=== PATIENT | female | born 1990 | race African-American/Black ===

== ENCOUNTER 2020-06-28 17:06 | Observation (INO) | payer OTHER ==
[2020-06-28 18:04] VITALS: BMI 52.2
[2020-06-28] MEDS ORDERED: Calcium Carbonate 500 MG ChewTAB PO PRN (18:30)
[2020-06-28] MEDS ORDERED: Ondansetron PF 4 MG/2 ML Vial SLOW IVP PRN (18:30)
[2020-06-28] MEDS ORDERED: Acetaminophen 325 MG TAB PO PRN (18:30)
[2020-06-28] MEDS ORDERED: diphenhydrAMINE 50 MG/ML VIAL IVP PRN (20:05)
[2020-06-28] MEDS ORDERED: diphenhydrAMINE 50 MG/ML VIAL IVP SCH (20:15)
[2020-06-28] MEDS ORDERED: Pantoprazole 40 MG VIAL IVP SCH (20:15)
[2020-06-28 20:57] LABS: Phosphorus 3.6 mg/dL (2.3-4.7)
[2020-06-28 21:00] LABS: ALT (SGPT) 10 U/L (8-55); AST (SGOT) 16 U/L (5-34); Alkaline Phosphatase 91 U/L (40-110); Anion Gap 16 mmol/L (10-20); BUN (Urea Nitrogen) 4 mg/dL (7.0-18.7); Bilirubin, Total 0.4 mg/dL (0.2-1.2); Calc. Creatinine Clearance 268 mL/min (70-130); Calcium 9.5 mg/dL (7.8-10.44); Carbon Dioxide 21 mmol/L (22-29); Chloride 103 mmol/L (98-107); Globulin 3.9 g/dL (2.4-3.5); Glucose 94 mg/dL (70-105); Potassium 3.5 mmol/L (3.5-5.1); Protein, Total 7.9 g/dL (6.0-8.3); Sodium 136 mmol/L (136-145)
[2020-06-28] MEDS: Lactated Ringer's 1,000 ML IV SCH (21:00)
[2020-06-28 21:01] LABS: Magnesium 1.8 mg/dL (1.6-2.6)
[2020-06-28 21:21] LABS: Thyroid Stimulating Hormone 1.4609 uIU/mL (0.35-4.94)
[2020-06-28 22:03] LABS: #Monocytes 0.8 10x3/uL (0.0-1.1); %Basophils 0.3 % (0.0-2.0); %Eosinophils 0.2 % (0.0-6.0); %Lymphocytes 17.5 % (18.0-47.0); %Monocytes 7.3 % (0.0-10.0); %Neutrophils 74.4 % (40.0-75.0); Hemoglobin 11.6 g/dL (12.0-15.5); Mean Corpuscular HGB CONC 32.7 g/dL (32.0-36.0); Mean Corpuscular Volume 85.7 fl (81.6-98.3); Mean Platelet Volume 10.1 fl (7.4-10.4); Platelet Count 339 10x3/uL (150-450); RBC Distribution Width 16.3 % (11.5-14.5); Red Blood Cell (RBC) Count 4.14 10x6/uL (3.90-5.03); White Blood Cell (WBC) Count 10.7 10x3/uL (3.5-10.5)
[2020-06-28] MEDS ORDERED: Nystatin Powder 15 GM BOT TOP PRN (22:23)
[2020-06-29] MEDS: Lactated Ringer's 1,000 ML IV SCH (03:50)
[2020-06-29 04:22] LABS: Bilirubin 1+ (Negative); Blood, Urine Negative (Negative); Clarity Clear (Clear); Glucose, Urine (Dipstick) Normal (Negative); Ketone, Urine 150 mg/dL (Negative); Leukocyte 25 (Negative); Nitrite Negative (Negative); Protein, Urine (Dipstick) 30 mg/dl (Neg-Trace); Specific Gravity, Urine 1.025 (1.002-1.036)
[2020-06-29 04:41] LABS: Bacteria/HPF 2+ HPF (None Seen); Mucous/LPF 4+ LPF (<2+); RBC/HPF 0-3 HPF (0-3)
[2020-06-29 06:49] LABS: #Monocytes 0.7 10x3/uL (0.0-1.1); #Neutrophils 5.5 10x3/uL (1.5-8.4); %Basophils 0.4 % (0.0-2.0); %Eosinophils 0.4 % (0.0-6.0); %Lymphocytes 26.4 % (18.0-47.0); %Monocytes 8.3 % (0.0-10.0); Hemoglobin 10.5 g/dL (12.0-15.5); Mean Corpuscular HGB CONC 31.7 g/dL (32.0-36.0); Mean Corpuscular Hemoglobin 27.5 pg (27.0-33.0); Mean Corpuscular Volume 86.6 fl (81.6-98.3); Mean Platelet Volume 10.2 fl (7.4-10.4); Platelet Count 314 10x3/uL (150-450); RBC Distribution Width 16.7 % (11.5-14.5); Red Blood Cell (RBC) Count 3.82 10x6/uL (3.90-5.03); White Blood Cell (WBC) Count 8.5 10x3/uL (3.5-10.5)
[2020-06-29 07:36] LABS: HIV (1/2) Antibody/Antigen Non-Reactive (NonReactive); HIV 1/2 INDEX 0.07 S/CO (<1.00); Hep B Surf Ag Non-Reactive S/CO (NonReactive)
[2020-06-29 07:37] LABS: Syphilis Antibody Nonreactive (Nonreactive); Syphilis Antibody Index 0.04 S/CO (<1.00 Non-Reactive)
[2020-06-29 07:42] LABS: HBSAg Index 0.07 S/CO (0-0.99)
[2020-06-29] MEDS ORDERED: Pantoprazole 40 MG VIAL IVP SCH (09:00)
[2020-06-29] MEDS ORDERED: Prenatal Vitamin 1 TAB PO SCH (09:00)
[2020-06-29 11:14] VITALS: BP 110/66; TEMP 98.5
[2020-06-29 13:35] LABS: SARS-CoV-2 PCR by NAA Not Detected (NotDetected)
[2020-06-29 20:51] LABS: Hep C IgG Ab Non-Reactive (NonReactive); Hep C Index 0.12 S/CO (0-0.79)
== END 2020-06-29 15:45 | disposition home or self-care (01) ==
LOC: INTOOBSV 17:06 → CSHANTE 17:06
PROVIDERS: ADMIT Internal Medicine; ATTEND Emergency Medicine
DX: O21.0 Mild hyperemesis gravidarum (principal); O99.891 Other specified diseases and conditions complicating pregnancy; L30.4 Erythema intertrigo; O99.613 Diseases of the digestive system complicating pregnancy, third trimester; K21.9 Gastro-esophageal reflux disease without esophagitis; O34.211 Maternal care for low transverse scar from previous cesarean delivery; Z3A.01 Less than 8 weeks gestation of pregnancy; Z88.8 Allergy status to other drugs, medicaments and biological substances
CPT/HCPCS: 36415; 76856; 80053; 81001; 83036; 83690; 83735; 84100; 84443; 85025; 86762; 86780; 86803; 86850; 86900; 86901; 87340; 87389; 87635; 93005; 93010; 96361; 96374; G0378; J1200; U0003; U0005

== ENCOUNTER 2020-07-03 10:09 | Observation (INO) | payer OTHER ==
[~2020-07-03 10:09] MED LIST: Pantoprazole 40 MG VIAL IVP SCH
[2020-07-03] MEDS ORDERED: Famotidine/PF 20 mg/2ml Vial ONE (10:55)
[2020-07-03] MEDS ORDERED: Pantoprazole 40 MG VIAL ONE ×2 (10:55→12:16)
[2020-07-03] MEDS ORDERED: Metoclopramide HCl 10 MG/2 ML VIAL ONE (10:56)
[2020-07-03 11:59] LABS: #Monocytes 0.8 10x3/uL (0.0-1.1); #Neutrophils 7.8 10x3/uL (1.5-8.4); %Basophils 0.3 % (0.0-2.0); %Eosinophils 0.1 % (0.0-6.0); %Lymphocytes 15.4 % (18.0-47.0); %Monocytes 7.9 % (0.0-10.0); %Neutrophils 75.8 % (40.0-75.0); Hemoglobin 12.3 g/dL (12.0-15.5); Mean Corpuscular HGB CONC 32.2 g/dL (32.0-36.0); Platelet Count 384 10x3/uL (150-450); RBC Distribution Width 16.6 % (11.5-14.5); Red Blood Cell (RBC) Count 4.39 10x6/uL (3.90-5.03); White Blood Cell (WBC) Count 10.3 10x3/uL (3.5-10.5)
[2020-07-03 12:22] LABS: Anion Gap 16 mmol/L (10-20); BUN (Urea Nitrogen) 5 mg/dL (7.0-18.7); Calc. Creatinine Clearance 0 mL/min (70-130); Calcium 9.7 mg/dL (7.8-10.44); Carbon Dioxide 22 mmol/L (22-29); Chloride 103 mmol/L (98-107); Glucose 79 mg/dL (70-105); Potassium 3.6 mmol/L (3.5-5.1); Sodium 137 mmol/L (136-145)
[2020-07-03] MEDS ORDERED: Acetaminophen 325 MG TAB PO PRN (12:42)
[2020-07-03] MEDS ORDERED: Acetaminophen 650 MG Suppository PR PRN (12:42)
[2020-07-03] MEDS ORDERED: Ondansetron PF 4 MG/2 ML Vial IVP SCH (12:45)
[2020-07-03] MEDS ORDERED: Nystatin Powder 15 GM BOT TOP PRN (12:48)
[2020-07-03] MEDS ORDERED: diphenhydrAMINE 50 MG/ML VIAL IVP PRN (13:21)
[2020-07-03] MEDS ORDERED: Lactated Ringer's 1,000 ML IV SCH ×2 (13:30)
[2020-07-03] MEDS ORDERED: Promethazine HCl 25 MG in Sodium Chloride 0.9% 50 ML IVPB SCH (13:45)
[2020-07-03] MEDS: Lactated Ringer's 1,000 ML IV SCH ×2 (16:23→20:10)
[2020-07-03] MEDS: Ondansetron PF 4 MG/2 ML Vial IVP SCH (20:11)
[2020-07-03 22:47] LABS: Magnesium 2.3 mg/dL (1.6-2.6); Phosphorus 3.2 mg/dL (2.3-4.7)
[2020-07-04] MEDS: Lactated Ringer's 1,000 ML IV SCH ×2 (01:12→05:17)
[2020-07-04] MEDS: Ondansetron PF 4 MG/2 ML Vial IVP SCH ×2 (03:45→08:27)
[2020-07-04 08:14] VITALS: BP 114/66; TEMP 97.9
[2020-07-04] MEDS ORDERED: Ondansetron ODT 4 MG TAB PO SCH (08:30)
[2020-07-04] MEDS ORDERED: Prenatal Vitamin 1 TAB PO SCH (09:00)
[2020-07-04] MEDS ORDERED: Pantoprazole 40 MG VIAL IVP SCH (09:00)
[2020-07-04] MEDS ORDERED: Metoclopramide HCl 10 MG TAB PO SCH (11:30)
[2020-07-04 16:44] LABS: SARS-CoV-2 PCR by NAA Not Detected (NotDetected)
== END 2020-07-04 10:33 | disposition home or self-care (01) ==
LOC: CSHERS 10:09 → CSHPP 14:33
PROVIDERS: ADMIT Family Medicine; ATTEND Family Medicine
DX: O21.0 Mild hyperemesis gravidarum (principal); O99.611 Diseases of the digestive system complicating pregnancy, first trimester; K21.9 Gastro-esophageal reflux disease without esophagitis; O99.891 Other specified diseases and conditions complicating pregnancy; R19.7 Diarrhea, unspecified; L30.4 Erythema intertrigo; O99.211 Obesity complicating pregnancy, first trimester; E66.9 Obesity, unspecified; O34.211 Maternal care for low transverse scar from previous cesarean delivery; Z3A.01 Less than 8 weeks gestation of pregnancy; Z88.8 Allergy status to other drugs, medicaments and biological substances; Z20.822 Contact with and (suspected) exposure to COVID-19
CPT/HCPCS: 80048; 82010; 83735; 84100; 84702; 85025; 87635; 96374; 96375; 96376; C9113; G0378; J2405; J2550; J2765; S0028; U0003; U0005

== ENCOUNTER 2020-08-06 17:23 | Emergency (ER) | payer OTHER ==
[2020-08-06] MEDS ORDERED: Acetaminophen 500 MG TAB ONE (17:49)
[2020-08-06 18:02] LABS: Bilirubin Neg (Negative); Blood, Urine Negative (Negative); Clarity Clear (Clear); Glucose, Urine (Dipstick) Normal (Negative); Ketone, Urine Negative (Negative); Leukocyte 25 (Negative); Nitrite Negative (Negative); Protein, Urine (Dipstick) Negative (Neg-Trace); Specific Gravity, Urine 1.015 (1.002-1.036); Urobilinogen Normal mg/dL (Less than 2)
[2020-08-06 18:13] LABS: Bacteria/HPF Rare-Few HPF (None Seen); Mucous/LPF Few LPF (<2+); RBC/HPF 0-3 HPF (0-3); Squamous Epithelial 0-3 HPF (0-3); WBC/HPF 0-3 HPF (0-3)
[2020-08-06 18:21] LABS: #Monocytes 0.7 10x3/uL (0.0-1.1); #Neutrophils 5.3 10x3/uL (1.5-8.4); %Basophils 0.3 % (0.0-2.0); %Eosinophils 0.5 % (0.0-6.0); %Lymphocytes 28.4 % (18.0-47.0); %Monocytes 8.1 % (0.0-10.0); %Neutrophils 62.1 % (40.0-75.0); Mean Corpuscular HGB CONC 31.9 g/dL (32.0-36.0); Mean Corpuscular Hemoglobin 27.8 pg (27.0-33.0); Mean Platelet Volume 10.1 fl (7.4-10.4); Platelet Count 322 10x3/uL (150-450); RBC Distribution Width 16.1 % (11.5-14.5); Red Blood Cell (RBC) Count 4.32 10x6/uL (3.90-5.03); White Blood Cell (WBC) Count 8.6 10x3/uL (3.5-10.5)
[2020-08-06 18:32] LABS: ALT (SGPT) 11 U/L (8-55); AST (SGOT) 23 U/L (5-34); Albumin 3.7 g/dL (3.5-5.0); Alkaline Phosphatase 80 U/L (40-110); Anion Gap 14 mmol/L (10-20); BUN (Urea Nitrogen) 5 mg/dL (7.0-18.7); Bilirubin, Total 0.2 mg/dL (0.2-1.2); Calc. Creatinine Clearance 0 mL/min (70-130); Calcium 9.6 mg/dL (7.8-10.44); Carbon Dioxide 21 mmol/L (22-29); Chloride 104 mmol/L (98-107); Globulin 4.1 g/dL (2.4-3.5); Glucose 82 mg/dL (70-105); Lipase 19 U/L (8-78); Potassium 3.9 mmol/L (3.5-5.1); Protein, Total 7.8 g/dL (6.0-8.3); Sodium 135 mmol/L (136-145)
== END 2020-08-06 19:46 | disposition home or self-care (01) ==
LOC: CSHERS 17:23
DX: O99.891 Other specified diseases and conditions complicating pregnancy (principal); R07.2 Precordial pain; R11.0 Nausea; Z3A.12 12 weeks gestation of pregnancy
CPT/HCPCS: 71045; 80053; 81003; 81015; 83690; 84484; 84702; 85025; 93005

== ENCOUNTER 2021-02-08 05:30 | Inpatient (IN) | payer OTHER ==
[2021-02-08] MEDS ORDERED: Bupivacaine 0.25% HCL 30 ML VIAL ONE (06:00)
[2021-02-08 07:00] VITALS: BMI 52.2
[2021-02-08] MEDS ORDERED: Lidocaine 1% (PF) 30 ML VIAL SC PRN (07:07)
[2021-02-08] MEDS ORDERED: Ondansetron PF 4 MG/2 ML Vial IVP PRN ×2 (07:10→22:51)
[2021-02-08] MEDS ORDERED: Promethazine HCl 25 MG/ML VIAL IM PRN ×2 (07:10→22:51)
[2021-02-08] MEDS ORDERED: hydrALAZINE 20 MG/ML VIAL SLOW IVP PRN (07:10)
[2021-02-08] MEDS ORDERED: Penicillin G Potassium 5 MILL.UNITS in Sodium Chloride 0.9% 100 ML IVPB SCH (07:15)
[2021-02-08] MEDS ORDERED: NS w/ Oxytocin 30 units 500 ML IV SCH (07:15)
[2021-02-08] MEDS ORDERED: Lactated Ringer's 1,000 ML IV SCH (07:15)
[2021-02-08] MEDS ORDERED: NS w/ Oxytocin 30 units 500 ML IVPB SCH (07:15)
[2021-02-08] MEDS ORDERED: Acetaminophen 325 MG TAB PO PRN ×2 (07:29→22:51)
[2021-02-08] MEDS ORDERED: Penicillin G Potassium 5 MILL.UNITS VIAL ONE (07:33)
[2021-02-08] MEDS ORDERED: Ondansetron PF 4 MG/2 ML Vial ONE (07:33)
[2021-02-08] MEDS ORDERED: NS w/ Oxytocin 30 units 500 ML ONE (07:33)
[2021-02-08 08:51] LABS: Hemoglobin 9.7 g/dL (12.0-15.5); Mean Corpuscular HGB CONC 31.8 g/dL (32.0-36.0); Mean Corpuscular Hemoglobin 26.9 pg (27.0-33.0); Mean Corpuscular Volume 84.5 fl (81.6-98.3); Mean Platelet Volume 10.8 fl (7.4-10.4); Platelet Count 371 10x3/uL (150-450); RBC Distribution Width 14.8 % (11.5-14.5); Red Blood Cell (RBC) Count 3.61 10x6/uL (3.90-5.03); White Blood Cell (WBC) Count 9.5 10x3/uL (3.5-10.5)
[2021-02-08 09:28] LABS: Hep B Surf Ag Non-Reactive S/CO (NonReactive); Syphilis Antibody Nonreactive (Nonreactive); Syphilis Antibody Index 0.04 S/CO (<1.00 Non-Reactive)
[2021-02-08 09:33] LABS: HBSAg Index 0.15 S/CO (0-0.99)
[2021-02-08] MEDS: Butorphanol Tartrate 1 MG/ML VIAL SLOW IVP PRN ×2 (10:04→17:22)
[2021-02-08 11:02] LABS: SARS-CoV-2 NAA Rapid Test Not Detected (NotDetected)
[2021-02-08 11:14] LABS: ALT (SGPT) 12 U/L (8-55); AST (SGOT) 19 U/L (5-34); Albumin 3.5 g/dL (3.5-5.0); Alkaline Phosphatase 197 U/L (40-110); Anion Gap 15 mmol/L (10-20); BUN (Urea Nitrogen) 5 mg/dL (7.0-18.7); Bilirubin, Total 0.3 mg/dL (0.2-1.2); Calc. Creatinine Clearance 296 mL/min (70-130); Calcium 8.9 mg/dL (7.8-10.44); Carbon Dioxide 20 mmol/L (22-29); Chloride 106 mmol/L (98-107); Globulin 3.1 g/dL (2.4-3.5); Glucose 65 mg/dL (70-105); Protein, Total 6.6 g/dL (6.0-8.3); Sodium 137 mmol/L (136-145)
[2021-02-08 12:23] LABS: Creatinine, Urine 145.81 mg/dL (47-110)
[2021-02-08] MEDS: Penicillin G 2.5 MILL.units 2.5 MILL.UNITS in Premix Bag 1 BAG IVPB SCH ×3 (12:57→21:17)
[2021-02-08] MEDS ORDERED: Butorphanol Tartrate 1 MG/ML VIAL SLOW IVP SCH (14:15)
[2021-02-08] MEDS ORDERED: Butorphanol Tartrate 1 MG/ML VIAL SLOW IVP PRN (18:40)
[2021-02-08] MEDS ORDERED: Fentanyl 2 mcg/Bup 0.1% Cadd 100 ML ONE (21:27)
[2021-02-08] MEDS: Fentanyl 2 mcg/Bupivacaine 0.1% Cassette 100 ML EPIDURAL SCH (22:40)
[2021-02-08] MEDS ORDERED: Naloxone HCl 0.4 mg/ml Vial IVP PRN ×2 (22:51)
[2021-02-08] MEDS ORDERED: Lactated Ringer's 500 ML IV PRN (22:51)
[2021-02-08] MEDS ORDERED: ePHEDrine Sulfate 50 MG/10 ML VIAL SLOW IVP PRN (22:51)
[2021-02-08] MEDS ORDERED: Hydrocerin (Eucerin) Cream 120 gm Jar TOP PRN (22:51)
[2021-02-08] MEDS ORDERED: diphenhydrAMINE 50 MG/ML VIAL IVP PRN (22:51)
[2021-02-08] MEDS ORDERED: Communication Order-Pharmacy FS SCH (23:00)
[2021-02-09 00:59] LABS: #Monocytes 1.1 10x3/uL (0.0-1.1); #Neutrophils 7.7 10x3/uL (1.5-8.4); %Basophils 0.3 % (0.0-2.0); %Eosinophils 0.3 % (0.0-6.0); %Monocytes 10.2 % (0.0-10.0); %Neutrophils 73.5 % (40.0-75.0); Hemoglobin 9.7 g/dL (12.0-15.5); Mean Corpuscular HGB CONC 32.7 g/dL (32.0-36.0); Mean Corpuscular Hemoglobin 26.2 pg (27.0-33.0); Mean Corpuscular Volume 80.3 fl (81.6-98.3); Mean Platelet Volume 10.5 fl (7.4-10.4); RBC Distribution Width 14.7 % (11.5-14.5); White Blood Cell (WBC) Count 10.5 10x3/uL (3.5-10.5)
[2021-02-09 01:05] LABS: Platelet Count 256 10x3/uL (150-450)
[2021-02-09 01:14] LABS: ALT (SGPT) 11 U/L (8-55); AST (SGOT) 21 U/L (5-34); Albumin 3.2 g/dL (3.5-5.0); Alkaline Phosphatase 188 U/L (40-110); Anion Gap 16 mmol/L (10-20); BUN (Urea Nitrogen) 4 mg/dL (7.0-18.7); Bilirubin, Total 0.4 mg/dL (0.2-1.2); Calc. Creatinine Clearance 306 mL/min (70-130); Calcium 8.9 mg/dL (7.8-10.44); Carbon Dioxide 16 mmol/L (22-29); Chloride 110 mmol/L (98-107); Globulin 3.5 g/dL (2.4-3.5); Glucose 72 mg/dL (70-105); Potassium 3.8 mmol/L (3.5-5.1); Protein, Total 6.7 g/dL (6.0-8.3); Sodium 138 mmol/L (136-145)
[2021-02-09 02:21] LABS: Creatinine, Urine 282.41 mg/dL (47-110)
[2021-02-09] MEDS: Penicillin G 2.5 MILL.units 2.5 MILL.UNITS in Premix Bag 1 BAG IVPB SCH ×2 (04:28→19:10)
[2021-02-09] MEDS ORDERED: Calcium Carbonate 500 MG ChewTAB PO PRN (05:19)
[2021-02-09] MEDS: Fentanyl 2 mcg/Bupivacaine 0.1% Cassette 100 ML EPIDURAL SCH (06:44)
[2021-02-09] MEDS ORDERED: Bisacodyl 10 MG SUPP PR PRN (10:42)
[2021-02-09] MEDS ORDERED: diphenhydrAMINE 25 MG CAP PO PRN (10:42)
[2021-02-09] MEDS ORDERED: Lanolin Ointment 7 GM TUBE TOP PRN (10:42)
[2021-02-09] MEDS ORDERED: Acetaminophen 325 MG TAB PO PRN (10:42)
[2021-02-09] MEDS ORDERED: hydrALAZINE 20 MG/ML VIAL SLOW IVP PRN (10:42)
[2021-02-09] MEDS ORDERED: Milk Of Magnesia 30 ML UDCUP PO PRN (10:42)
[2021-02-09] MEDS ORDERED: Boostrix 0.5 ML (Tdap) VIAL IM ONE (10:42)
[2021-02-09] MEDS ORDERED: Benzocaine-Menthol 82.5 ML CAN TOP PRN (10:42)
[2021-02-09] MEDS ORDERED: Preparation H Ointment 28 GM TUBE PR PRN (10:42)
[2021-02-09] MEDS ORDERED: Prenatal Vitamin 1 TAB PO SCH (11:00)
[2021-02-09] MEDS ORDERED: Docusate Calcium (SURFAK) 240 MG CAP PO SCH (11:00)
[2021-02-09] MEDS: Ibuprofen 600 MG TAB PO PRN (11:28)
[2021-02-09] MEDS ORDERED: Calcium Gluconate 4.6 MEQ in Sodium Chloride 0.9% 100 ML IVPB PRN (12:47)
[2021-02-09] MEDS ORDERED: Magnesium Sulfate 20 gm/500 ml 20 GM/500 ML BAG ONE (12:57)
[2021-02-09] MEDS: Magnesium Sulfate 20 GM/WATER 500 ML BAG IVPB SCH (13:10)
[2021-02-09] MEDS: Magnesium Sulfate 20 gm/500 ml 20 GM/500 ML BAG IVPB SCH ×2 (13:30→21:55)
[2021-02-09 13:40] LABS: #Monocytes 0.8 10x3/uL (0.0-1.1); #Neutrophils 9.8 10x3/uL (1.5-8.4); %Basophils 0.2 % (0.0-2.0); %Eosinophils 0.2 % (0.0-6.0); %Lymphocytes 12.3 % (18.0-47.0); %Monocytes 6.2 % (0.0-10.0); %Neutrophils 80.6 % (40.0-75.0); Hemoglobin 9.3 g/dL (12.0-15.5); Mean Corpuscular HGB CONC 31.6 g/dL (32.0-36.0); Mean Corpuscular Hemoglobin 26.3 pg (27.0-33.0); Mean Corpuscular Volume 83.3 fl (81.6-98.3); Mean Platelet Volume 9.8 fl (7.4-10.4); Platelet Count 317 10x3/uL (150-450); RBC Distribution Width 14.8 % (11.5-14.5); Red Blood Cell (RBC) Count 3.53 10x6/uL (3.90-5.03); White Blood Cell (WBC) Count 12.1 10x3/uL (3.5-10.5)
[2021-02-09 13:50] LABS: ALT (SGPT) 10 U/L (8-55); AST (SGOT) 19 U/L (5-34); Albumin 2.9 g/dL (3.5-5.0); Alkaline Phosphatase 159 U/L (40-110); Anion Gap 14 mmol/L (10-20); BUN (Urea Nitrogen) Less than 4 mg/dL (7.0-18.7); Bilirubin, Total 0.6 mg/dL (0.2-1.2); Calc. Creatinine Clearance 323 mL/min (70-130); Calcium 8.8 mg/dL (7.8-10.44); Carbon Dioxide 16 mmol/L (22-29); Chloride 110 mmol/L (98-107); Glucose 100 mg/dL (70-105); Potassium 3.2 mmol/L (3.5-5.1); Protein, Total 5.9 g/dL (6.0-8.3); Sodium 137 mmol/L (136-145); Uric Acid 4.5 mg/dL (2.6-6.0)
[2021-02-09] MEDS ORDERED: Cyclobenzaprine 10 MG TAB PO SCH (14:00)
[2021-02-09] MEDS ORDERED: Potassium Chloride 20 MEQ TAB PO SCH (15:15)
[2021-02-09] MEDS ORDERED: Furosemide 40 MG/4 ML VIAL SLOW IVP SCH (16:00)
[2021-02-09 17:40] LABS: Creatinine, Urine 26.76 mg/dL (47-110); Protein, Urine Random Quant Less than 10 mg/dL (1-14)
[2021-02-09] MEDS: Ferrous Sulfate 325 MG TAB PO SCH (19:08)
[2021-02-09] MEDS: Docusate Calcium (SURFAK) 240 MG CAP PO SCH (21:51)
[2021-02-10 04:40] LABS: Anion Gap 11 mmol/L (10-20); BUN (Urea Nitrogen) Less than 4 mg/dL (7.0-18.7); Calc. Creatinine Clearance 323 mL/min (70-130); Calcium 7.9 mg/dL (7.8-10.44); Carbon Dioxide 21 mmol/L (22-29); Chloride 110 mmol/L (98-107); Glucose 77 mg/dL (70-105); Potassium 3.2 mmol/L (3.5-5.1); Sodium 139 mmol/L (136-145)
[2021-02-10] MEDS: Ibuprofen 600 MG TAB PO PRN ×2 (05:32→14:08)
[2021-02-10] MEDS ORDERED: Furosemide 20 MG/2 ML VIAL SLOW IVP SCH (08:45)
[2021-02-10] MEDS: Docusate Calcium (SURFAK) 240 MG CAP PO SCH (08:56)
[2021-02-10] MEDS: Ferrous Sulfate 325 MG TAB PO SCH ×2 (08:57→16:39)
[2021-02-10] MEDS ORDERED: Amlodipine 5 MG TAB PO SCH (09:00)
[2021-02-10] MEDS ORDERED: Prenatal Vitamin 1 TAB PO SCH (09:00)
[2021-02-10] MEDS: Magnesium Sulfate 20 GM/WATER 500 ML BAG IVPB SCH (14:14)
[2021-02-10 21:54] VITALS: BP 136/78; TEMP 97.8
== END 2021-02-10 21:20 | disposition home or self-care (01) | DRG 807 ==
LOC: EEVIPCON 05:43 → CSHLD 05:43 → CSHPP 02-10 08:33
PROVIDERS: ADMIT Family Medicine; ATTEND Family Medicine
PROC: 10E0XZZ Delivery of Products of Conception, External Approach (ICD-10-PCS; principal; 2021-02-09)
PROC: 10H07YZ Insertion of Other Device into Products of Conception, Via Natural or Artificial Opening (ICD-10-PCS; 2021-02-09)
DX: O11.4 Pre-existing hypertension with pre-eclampsia, complicating childbirth (principal); Z37.0 Single live birth; O40.3XX0 Polyhydramnios, third trimester, not applicable or unspecified; Z20.822 Contact with and (suspected) exposure to COVID-19; O99.344 Other mental disorders complicating childbirth; F32.A Depression, unspecified; F41.1 Generalized anxiety disorder; O99.62 Diseases of the digestive system complicating childbirth; O99.214 Obesity complicating childbirth; E66.8 Other obesity; K21.9 Gastro-esophageal reflux disease without esophagitis; Z3A.38 38 weeks gestation of pregnancy
CPT/HCPCS: 36415; 80048; 80053; 82570; 84156; 84550; 85025; 85027; 86780; 86850; 86900; 86901; 87340; J0360; J0595; J1940; J2405; J2540; J2590; J3475; S0020; U0002

== ENCOUNTER → 2021-03-10 10:23 | Emergency (ER) | payer OTHER ==
[2021-03-10 22:43] LABS: SARS-CoV-2 PCR by NAA Not Detected (NotDetected)
== END | disposition home or self-care (01) ==
LOC: CSHERS 10:23
DX: J06.9 Acute upper respiratory infection, unspecified (principal); Z20.822 Contact with and (suspected) exposure to COVID-19
CPT/HCPCS: 99283; U0003; U0005

== ENCOUNTER 2021-04-01 15:06 | Emergency (ER) | payer OTHER | END 2021-04-01 17:54 | disposition left against medical advice (07) | LOC: CSHERS 15:06 | DX: Z53.21 Procedure and treatment not carried out due to patient leaving prior to being seen by health care provider (principal) ==

== ENCOUNTER 2021-08-08 13:39 | Emergency (ER) | payer OTHER ==
[2021-08-08 14:33] LABS: #Monocytes 0.7 10x3/uL (0.0-1.1); #Neutrophils 4.1 10x3/uL (1.5-8.4); %Basophils 0.4 % (0.0-2.0); %Eosinophils 0.3 % (0.0-6.0); %Monocytes 9.6 % (0.0-10.0); %Neutrophils 60.4 % (40.0-75.0); Mean Corpuscular HGB CONC 31.9 g/dL (32.0-36.0); Mean Corpuscular Hemoglobin 28.8 pg (27.0-33.0); Mean Corpuscular Volume 90.2 fl (81.6-98.3); Platelet Count 320 10x3/uL (150-450); RBC Distribution Width 14.6 % (11.5-14.5); Red Blood Cell (RBC) Count 4.17 10x6/uL (3.90-5.03); White Blood Cell (WBC) Count 6.8 10x3/uL (3.5-10.5)
[2021-08-08 14:37] LABS: ALT (SGPT) 18 U/L (8-55); AST (SGOT) 28 U/L (5-34); Albumin 4.3 g/dL (3.5-5.0); Alkaline Phosphatase 99 U/L (40-110); Anion Gap 14 mmol/L (10-20); BUN (Urea Nitrogen) 6 mg/dL (7.0-18.7); Bilirubin, Total 0.3 mg/dL (0.2-1.2); Calc. Creatinine Clearance 0 mL/min (70-130); Calcium 9.9 mg/dL (7.8-10.44); Carbon Dioxide 24 mmol/L (22-29); Chloride 106 mmol/L (98-107); Globulin 3.7 g/dL (2.4-3.5); Glucose 92 mg/dL (70-105); Lipase 20 U/L (8-78); Potassium 3.8 mmol/L (3.5-5.1); Sodium 140 mmol/L (136-145)
[2021-08-08 15:35] LABS: BHCG - Serum Negative (NEGATIVE); Pregs Control Background? CLEAR/WHITE (CLR/WHITE); Pregs Control Bar Appear? YES (CONTROL BAR)
[2021-08-08] MEDS ORDERED: Ondansetron ODT 4 MG TAB ONE (16:01)
[2021-08-08 16:23] LABS: Bilirubin Neg (Negative); Blood, Urine Negative (Negative); Clarity Clear (Clear); Glucose, Urine (Dipstick) Normal (Negative); Ketone, Urine 15 mg/dL (Negative); Leukocyte Negative (Negative); Nitrite Negative (Negative); Protein, Urine (Dipstick) 15 mg/dl (Neg-Trace); Specific Gravity, Urine 1.025 (1.002-1.036); Urobilinogen Normal mg/dL (Less than 2)
[2021-08-08 16:27] LABS: Pregnancy Test - Urine (BHCG) Negative (Negative); Pregu Control Background? CLEAR/WHITE (CLR/WHITE); Pregu Control Bar Appear? YES (CONTROL BAR); Specific Gravity 1.025 (1.002-1.036)
[2021-08-08 16:32] LABS: Amphetamine Not Detected (NotDetected); Barbiturates Screen Not Detected (NotDetected); Benzodiazepine Screen Not Detected (NotDetected); Cocaine Metabolite Screen Not Detected (NotDetected); Methadone Not Detected (NotDetected); Methamphetamine Not Detected (NotDetected); Opiate Screen Not Detected (NotDetected); Oxycodone Screen Not Detected (NotDetected); Phencyclidine (PCP) Not Detected (NotDetected); THC/Cannabinoid Screen Not Detected (NotDetected); Tricyclic Screen Not Detected (NotDetected)
== END 2021-08-08 18:40 | disposition home or self-care (01) ==
LOC: CSHERS 13:39
DX: R11.2 Nausea with vomiting, unspecified (principal)
CPT/HCPCS: 36415; 80053; 80306; 81003; 81025; 83690; 84703; 85025; 99284; Q0162

== ENCOUNTER 2021-09-26 14:53 | Emergency (ER) | payer OTHER ==
[2021-09-26] MEDS ORDERED: Ibuprofen 200 MG TAB ONE (17:09)
== END 2021-09-26 17:17 | disposition home or self-care (01) ==
LOC: CSHERS 14:53
DX: U07.1 COVID-19 (principal)
CPT/HCPCS: 71045; 87804; 93005; U0003; U0005

== ENCOUNTER 2021-11-25 13:11 | Emergency (ER) | payer OTHER ==
[2021-11-25] MEDS ORDERED: Aspirin Chewable 81 MG TAB ONE (14:27)
[2021-11-25 14:44] LABS: #Monocytes 0.6 10x3/uL (0.0-1.1); #Neutrophils 5.2 10x3/uL (1.5-8.4); %Basophils 0.5 % (0.0-2.0); %Eosinophils 0.5 % (0.0-6.0); %Lymphocytes 27.4 % (18.0-47.0); %Monocytes 7.4 % (0.0-10.0); Hemoglobin 12.7 g/dL (12.0-15.5); Mean Corpuscular HGB CONC 33.2 g/dL (32.0-36.0); Mean Corpuscular Hemoglobin 29.3 pg (27.0-33.0); Mean Corpuscular Volume 88.2 fl (81.6-98.3); Platelet Count 303 10x3/uL (150-450); RBC Distribution Width 14.6 % (11.5-14.5); Red Blood Cell (RBC) Count 4.33 10x6/uL (3.90-5.03); White Blood Cell (WBC) Count 8.1 10x3/uL (3.5-10.5)
[2021-11-25 15:08] LABS: ALT (SGPT) 14 U/L (8-55); AST (SGOT) 20 U/L (5-34); Albumin 4.1 g/dL (3.5-5.0); Alkaline Phosphatase 104 U/L (40-110); Anion Gap 13 mmol/L (10-20); BUN (Urea Nitrogen) 8 mg/dL (7.0-18.7); Bilirubin, Total 0.2 mg/dL (0.2-1.2); CK (CPK) 149 U/L (29-168); Calc. Creatinine Clearance 0 mL/min (70-130); Calcium 9.8 mg/dL (7.8-10.44); Carbon Dioxide 25 mmol/L (22-29); Chloride 104 mmol/L (98-107); Estimated GFR 106; Globulin 3.6 g/dL (2.4-3.5); Glucose 78 mg/dL (70-105); Potassium 4.4 mmol/L (3.5-5.1); Protein, Total 7.7 g/dL (6.0-8.3); Sodium 138 mmol/L (136-145)
== END 2021-11-25 15:55 | disposition home or self-care (01) ==
LOC: CSHERS 13:11
DX: R05.9 Cough, unspecified (principal); I10 Essential (primary) hypertension
CPT/HCPCS: 71045; 80053; 82550; 83880; 84484; 85025; 93005; 94640; J7620

== ENCOUNTER 2023-01-30 08:37 | Emergency (ER) | payer OTHER ==
[2023-01-30] MEDS ORDERED: HYDROcodone/Acetaminophen 10/325 mg Tablet ONE (09:07)
== END 2023-01-30 09:10 | disposition home or self-care (01) ==
LOC: CSHERS 08:37
DX: K02.9 Dental caries, unspecified (principal); I10 Essential (primary) hypertension
CPT/HCPCS: 99283

== ENCOUNTER 2025-02-05 07:37 | Emergency (ER) | payer OTHER ==
[2025-02-05 08:40] LABS: #Basophils Less than 0.03 10x3/uL (0.0-0.2); #Eosinophils 0.06 10x3/uL (0.0-0.5); #Monocytes 0.62 10x3/uL (0.0-1.1); #Neutrophils 3.44 10x3/uL (1.5-8.4); %Basophils 0.3 % (0.0-2.0); %Eosinophils 0.9 % (0.0-6.0); %Lymphocytes 35.6 % (18.0-47.0); %Monocytes 9.6 % (0.0-10.0); %Neutrophils 53.4 % (40.0-75.0); Hematocrit 33.4 % (34.9-44.5); Hemoglobin 10.7 g/dL (12.0-15.5); Mean Corpuscular Hemoglobin 29.4 pg (27.0-33.0); Mean Corpuscular Volume 91.8 fL (81.6-98.3); Platelet Count 292 10x3/uL (150-450); Red Blood Cell (RBC) Count 3.64 10x6/uL (3.90-5.03); White Blood Cell (WBC) Count 6.44 10x3/uL (3.5-10.5)
[2025-02-05 08:53] LABS: INR-International Normal Ratio 0.9; PTT 27.6 sec (22.0-33.0); Prothrombin Time 10.3 sec (9.5-12.1)
[2025-02-05 08:58] LABS: ALT (SGPT) 13 U/L (Less than 34); AST (SGOT) 35 U/L (11-34); Albumin 3.6 g/dL (3.1-4.5); Alkaline Phosphatase 91 U/L (40-110); Anion Gap 12 mmol/L (10-20); BUN (Urea Nitrogen) 7 mg/dL (7.0-18.7); Bilirubin, Total 0.1 mg/dL (0.3-1.2); Calc. Creatinine Clearance 0 mL/min (70-130); Calcium 9.1 mg/dL (7.8-10.44); Carbon Dioxide 21 mmol/L (22-29); Chloride 109 mmol/L (98-107); Globulin 3.7 g/dL (2.4-3.5); Glucose 71 mg/dL (70-105); Potassium 3.9 mmol/L (3.5-5.1); Sodium 138 mmol/L (136-145)
[2025-02-05 09:06] LABS: Glucose, Urine (Dipstick) Normal (Negative); Leukocyte Negative (Negative); Protein, Urine (Dipstick) 30 mg/dl (Neg-Trace); Specific Gravity, Urine 1.015 (1.005-1.030)
[2025-02-05 09:08] LABS: Pregnancy Test - Urine (BHCG) Negative (Negative); Pregu Control Background? CLEAR/WHITE (CLR/WHITE); Pregu Control Bar Appear? YES (CONTROL BAR)
[2025-02-05 10:20] LABS: Bacteria/HPF Rare-Few HPF (None Seen); CAUTI Indications for Culture Pelvic or flank pain; RBC/HPF Greater than 50 HPF (0-3); WBC/HPF None Seen HPF (0-3)
[2025-02-05 10:22] LABS: Urine Culture Reflex No No
== END 2025-02-05 10:46 | disposition home or self-care (01) ==
LOC: CSHERS 07:37
DX: N80.03 Adenomyosis of the uterus (principal)
CPT/HCPCS: 36415; 76856; 80053; 81001; 81025; 84702; 85025; 85610; 85730; 86850; 86900; 86901